=== PATIENT | male | born 1935 | race Caucasian/White ===

== ENCOUNTER 2016-10-21 10:27 | Emergency (ER) | payer MEDICAID, OTHER ==
[2016-10-21 10:57] VITALS: BMI 21.6
[2016-10-21 11:26] VITALS: BP 134/68; PULSE 84; RESP 20; TEMP 97.8; O2SAT 96
--- NOTE | 2016-10-21 11:38 | C.PDOC ---
History Of Present Illness 81 year old patient, with a past medical history of hypertension, presents to the ED complaining of bilateral eye redness and itching for the past 3 days. Patient's daughter is at bedside providing more history. She notes she thought it was allergies so she gave him Zyrtec with some relief. Patient also complains of a headache. He has a small, painless bump to his left forehead since he was a child, and now says "I think I have cancer in my head and I'm dying." Patient has a surgical history of cataract removal 3 months ago. As per daughter, patient states Patient denies trauma, fever, chills, vision change, shortness of breath, nausea, vomiting, back pain, numbness, weakness, or dizziness. Time Seen by Provider: 10/21/16 11:18 Chief Complaint (Nursing): Headache History Per: Patient, Family (daughter) History/Exam Limitations: no limitations Onset/Duration Of Symptoms: Days (3) Current Symptoms Are (Timing): Still Present Severity: Mild Pain Scale Rating Of: 3 Quality: "Pain" Preceeding Symptoms: None Recent travel outside of the [place]: No Additional History Per: Family Past Medical History Reviewed: Historical Data, Nursing Documentation, Vital Signs Vital Signs: Last Vital Signs Temp 97.8 F 10/21/16 10:45 Pulse 84 10/21/16 10:45 Resp 20 10/21/16 10:45 BP 134/68 10/21/16 10:45 Pulse Ox 96 10/21/16 13:47 - Medical History PMH: HTN Family History: States: No Known Family Hx - Social History Hx Tobacco Use: No Hx Alcohol Use: No Hx Substance Use: No - Immunization History Hx Tetanus Toxoid Vaccination: No Hx Influenza Vaccination: No Hx Pneumococcal Vaccination: No Review Of Systems Except As Marked, All Systems Reviewed And Found Negative. Constitutional: Negative for: Fever, Chills Eyes: Positive for: Redness (bilateral), Other (bilateral itchiness). Negative for: Vision Change Respiratory: Negative for: Shortness of Breath Gastrointestinal: Negative for: Nausea, Vomiting Musculoskeletal: Negative for: Back Pain Skin: Positive for: Other (bump to left forehead) Neurological: Positive for: Headache. Negative for: Weakness, Numbness, Dizziness Physical Exam - Physical Exam Appears: Non-toxic, No Acute Distress Skin: Warm, Dry Head: Atraumatic, Normacephalic, Other (freely moveable 1 cm soft tissue mass to the left forehead without evidence of cellulitis) Eye(s): bilateral: Normal Inspection, PERRL, EOMI, Other (mild conjunctival injection bilaterally) Ear(s): Bilateral: Normal Nose: Normal Oral Mucosa: Moist Throat: Normal Neck: Normal ROM, Supple Chest: Symmetrical Cardiovascular: Rhythm Regular, No Friction Rub, No Murmur Respiratory: Normal Breath Sounds, No Rales, No Rhonchi, No Wheezing Gastrointestinal/Abdominal: Soft, No Tenderness Back: Normal Inspection, No CVA Tenderness Extremity: Normal ROM, No Tenderness, No Swelling Neurological/Psych: Oriented x3, Normal Speech, Normal Cognition, Normal Motor, Normal Sensation Gait: Steady ED Course And Treatment O2 Sat by Pulse Oximetry: 96 (room air) Pulse Ox Interpretation: Normal - CT Scan/US Head CT Other Rad Studies (CT/US): Read By Radiologist (Emelina Ernandez MD), Radiology Report Reviewed CT/US Interpretation: PROCEDURE: CT HEAD WITHOUT CONTRAST. HISTORY: headache. COMPARISON: None available. TECHNIQUE: Axial computed tomography images were obtained through the head/brain without intravenous contrast. Radiation dose: Total exam DLP = 1059.52 MGy-cm. This CT exam was performed using one or more of the following dose reduction techniques: Automated exposure control, adjustment of the mA and/or kV according to patient size, and/ or use of iterative reconstruction technique. FINDINGS: HEMORRHAGE: No intracranial hemorrhage. BRAIN: Diffuse atrophy with prominence of the ventricles and sulci noted. No mass effect or edema. 5 mm coarse calcification, right basal ganglia. Scattered periventricular and subcortical white matter hypodensities, which are nonspecific, but often seen with chronic microvascular ischemic disease. Please note that MRI with diffusion imaging is more sensitive in the detection of acute ischemic event. VENTRICLES: No hydrocephalus. CALVARIUM: Unremarkable. PARANASAL SINUSES: Unremarkable as visualized. No significant inflammatory changes. MASTOID AIR CELLS: Unremarkable as visualized. No inflammatory changes. OTHER FINDINGS: None. IMPRESSION: Generalized atrophy. Nonspecific white matter changes. 5 mm coarse right basal ganglia calcification, nonspecific. Medical Decision Making Medical Decision Making: Plan: * Head CT without contrast * Reglan * Tylenol Results were discussed with the patient and family. Patient was instructed that the lump was most likely soft tissue or lipoma and to Follow up with the medical doctor within 1-2 days, Return if worsened Disposition - Disposition Referrals: Lucas Weinberg MD [Staff Provider] - Disposition: HOME/ ROUTINE Disposition Time: 12:33 Condition: FAIR Additional Instructions: Follow up with the medical and Eye doctor within 1-2 days without fail. Return if worsened. Prescriptions: Metoclopramide [Reglan] 1 tab PO TID PRN #25 tab PRN Reason: Nausea/Vomiting Tobramycin 0.3% [Tobramycin 5 Ml] 1 drop OU TID #1 bottle Instructions: Acute Headache (DC), Conjunctivitis (ED) Print Language: CHINESE - Clinical Impression Clinical Impression: Headache, Conjunctivitis - PA / PRINCIPAL ANDROID DEVELOPER / Resident Statement MD/DO has reviewed & agrees with the documentation as recorded. - Scribe Statement The provider has reviewed the documentation as recorded by the Scribe Nivia Pickens All medical record entries made by the Scribe were at my direction and personally dictated by me. I have reviewed the chart and agree that the record accurately reflects my personal performance of the history, physical exam, medical decision making, and the department course for this patient. I have also personally directed, reviewed, and agree with the discharge instructions and disposition.
--- NOTE | 2016-10-21 12:33 | CT ---
PROCEDURE: CT HEAD WITHOUT CONTRAST. HISTORY: headache COMPARISON: None available. TECHNIQUE: Axial computed tomography images were obtained through the head/brain without intravenous contrast. Radiation dose: Total exam DLP = 1059.52 MGy-cm. This CT exam was performed using one or more of the following dose reduction techniques: Automated exposure control, adjustment of the mA and/or kV according to patient size, and/or use of iterative reconstruction technique. FINDINGS: HEMORRHAGE: No intracranial hemorrhage. BRAIN: Diffuse atrophy with prominence of the ventricles and sulci noted. No mass effect or edema. 5 mm coarse calcification, right basal ganglia. Scattered periventricular and subcortical white matter hypodensities, which are nonspecific, but often seen with chronic microvascular ischemic disease. Please note that MRI with diffusion imaging is more sensitive in the detection of acute ischemic event. VENTRICLES: No hydrocephalus. CALVARIUM: Unremarkable. PARANASAL SINUSES: Unremarkable as visualized. No significant inflammatory changes. MASTOID AIR CELLS: Unremarkable as visualized. No inflammatory changes. OTHER FINDINGS: None. IMPRESSION: Generalized atrophy. Nonspecific white matter changes. 5 mm coarse right basal ganglia calcification, nonspecific.
== END 2016-10-21 12:45 | disposition home or self-care (01) ==
LOC: C.ER 10:27
DX: H10.9 Unspecified conjunctivitis (principal); R51 Headache

== ENCOUNTER 2017-05-01 10:21 | Emergency (ER) | payer MEDICARE, OTHER ==
[2017-05-01 10:21] VITALS: BMI 21.6
--- NOTE | 2017-05-01 12:03 | C.PDOC ---
History Of Present Illness 81 year old male, with past medical history of hypertension, is brought to Emergency Department by EMS for evaluation of left leg numbness and tingling sensation since 9:00 this morning. Patient reports left calf discomfort described as cramping. Patient states that he walked to the pharmacy to get his blood pressure checked, told the pharmacy staff about his symptoms, who called for ambulance. Denies any pain at this time. Otherwise, denies chest pain, shortness of breath, dizziness, headache, vision change, fever, or any other complaints at this time. Time Seen by Provider: 05/01/17 11:46 Chief Complaint (Nursing): Weakness/Neurological Deficit History Per: Patient History/Exam Limitations: no limitations Onset/Duration Of Symptoms: Days Current Symptoms Are (Timing): Still Present Recent travel outside of the [place]: No Additional History Per: Patient Past Medical History Reviewed: Historical Data, Nursing Documentation, Vital Signs Vital Signs: Last Vital Signs Temp 98.5 F 05/01/17 12:34 Pulse 85 05/01/17 14:07 Resp 18 05/01/17 14:07 BP 131/75 05/01/17 14:07 Pulse Ox 95 05/01/17 14:08 - Medical History PMH: HTN Surgical History: No Surg Hx Family History: States: Unknown Family Hx - Social History Hx Tobacco Use: No (past smoker) Hx Alcohol Use: Yes (daily) Hx Substance Use: No - Immunization History Hx Tetanus Toxoid Vaccination: No Hx Influenza Vaccination: No Hx Pneumococcal Vaccination: No Review Of Systems Except As Marked, All Systems Reviewed And Found Negative. Constitutional: Negative for: Fever, Chills Cardiovascular: Negative for: Chest Pain, Palpitations Respiratory: Negative for: Cough, Shortness of Breath Musculoskeletal: Negative for: Arm Pain, Leg Pain Skin: Negative for: Rash, Bruising Neurological: Positive for: Numbness ( leg). Negative for: Headache, Dizziness Physical Exam - Physical Exam Appears: Non-toxic, No Acute Distress Skin: Normal Color, Warm, Dry Head: Atraumatic, Normacephalic Eye(s): bilateral: Normal Inspection, PERRL, EOMI Oral Mucosa: Moist Neck: Normal ROM, Supple Chest: Symmetrical Cardiovascular: Rhythm Regular, No Murmur Respiratory: Normal Breath Sounds, No Rales, No Rhonchi, No Wheezing Gastrointestinal/Abdominal: Bowel Sounds, Soft, No Tenderness, No Guarding Extremity: Normal ROM, No Tenderness (no tenderness to left calf), No Pedal Edema, No Calf Tenderness, Capillary Refill (less than 2 seconds), No Deformity , No Swelling Pulses: Left Radial: Normal, Left Dorsalis Pedis: Normal Neurological/Psych: Oriented x3, Normal Speech, Normal Cranial Nerves, Normal Motor, Normal Sensation, No Other (no focal deficits) Gait: Steady ED Course And Treatment - Laboratory Results Result Diagrams: 05/01/17 12:08 05/01/17 12:08 ECG: Interpreted By Me, Viewed By Me ECG Rhythm: Sinus Rhythm ECG Interpretation: No Acute Changes Rate From EC (bpm) O2 Sat by Pulse Oximetry: 95 (RA) Pulse Ox Interpretation: Normal Medical Decision Making Medical Decision Making: Plan: * Blood work * Left lower extremity doppler * Reassess All labs reviewed and unremarkable. Doppler negative for DVT or other abnormality. Patient remained well in no acute distress. Daughter is at bedside and feels comfortable taking patient home. Advise follow up with PCP or to return to hospital for any worsening symptoms. Disposition Counseled Patient/Family Regarding: Studies Performed, Diagnosis, Need For Followup - Disposition [facility] [Outside] Disposition: HOME/ ROUTINE Disposition Time: 14:06 Condition: GOOD Additional Instructions: Vaya a mcbride mdico o la clnica en 2-5 black sin falta, para mas evaluacin. Volver a la sakshi de emergencia en cualquier momento si los sntomas persisten o empeoran. Instructions: Leg Pain (ED) Forms: [employer] (Sri Lankan) Print Language: MOZAMBICAN - POA Present On Arrival: None - Clinical Impression Clinical Impression: Pain of left calf, Muscle ache - PA / PITCH FLAKER / Resident Statement MD/DO has reviewed & agrees with the documentation as recorded. - Scribe Statement The provider has reviewed the documentation as recorded by the Juliannibjackson Pickens All medical record entries made by the Scribe were at my direction and personally dictated by me. I have reviewed the chart and agree that the record accurately reflects my personal performance of the history, physical exam, medical decision making, and the department course for this patient. I have also personally directed, reviewed, and agree with the discharge instructions and disposition.
[2017-05-01 12:16] LABS: BASO % 0.9 % (0.0-2.0); EOS # 0.1 K/uL (0.0-0.7); EOS % 2.3 % (0.0-4.0); HEMATOCRIT 41.3 % (35.0-51.0); LYMPH # 0.7 K/uL (1.0-4.3); LYMPH % 27.6 % (20.0-40.0); MEAN CELL VOLUME 87.5 fL (80.0-94.0); MEAN CORPUSCULAR HGB CONC 33.1 g/dL (33.0-37.0); MEAN PLATELET VOLUME 9.6 fL (7.2-11.7); MONO # 0.4 K/uL (0.0-0.8); MONO % 14.4 % (0.0-10.0); NRBC % 0.2 % (0.0-2.0); RED CELL DISTRIBUTION WIDTH 15.7 % (11.5-14.5); WHITE BLOOD COUNT 2.5 K/uL (4.8-10.8)
[2017-05-01 12:28] LABS: ALB/GLOB RATIO 1.1 (1.0-2.1); ALKALINE PHOSPHATASE 55 U/L (38-126); ALT/SGPT 41 U/L (21-72); AST/SGOT 21 U/L (17-59); BILIRUBIN,TOTAL 0.9 mg/dL (0.2-1.3); BLOOD UREA NITROGEN 23 mg/dL (9-20); CALCIUM 8.7 mg/dl (8.6-10.4); CARBON DIOXIDE 28 mmol/L (22-30); CHLORIDE 104 mmol/L (98-107); GFR AFRICAN-AMERICAN > 60; GLUCOSE,RANDOM 93 mg/dL (75-110); POTASSIUM 3.7 mmol/L (3.6-5.2); SODIUM 139 mmol/L (132-148); TOTAL PROTEIN 7.6 g/dL (6.3-8.3)
[2017-05-01 12:36] VITALS: TEMP 98.5
[2017-05-01 14:08] VITALS: BP 131/75; PULSE 85; RESP 18; O2SAT 95
--- NOTE | 2017-05-04 10:42 | VASCLAB ---
PROCEDURE: Left Lower Extremity Venous Duplex Exam. HISTORY: left calf pain PRIORS: None. TECHNIQUE: Left common femoral, femoral, popliteal and posterior tibial, peroneal and great saphenous veins were evaluated. Flow was assessed with color Doppler, compressibility, assessment of phasic flow and augmentation response. Report prepared by DINA Hicks, RVT FINDINGS: LEFT: 1. Common Femoral Vein: 1.1. Compressibility - Fully compressible: Thrombus - None : Flow - Phasic: Augmentation -Normal: Reflux - None. 2. Femoral Vein: 2.1. Compressibility - Fully compressible: Thrombus - None: Flow - Phasic: Augmentation -Normal: Reflux - None. 3. Popliteal Vein: 3.1. Compressibility - Fully compressible: Thrombus - None: Flow - Phasic: Augmentation -Normal: Reflux - None. 4. Posterior Tibial Vein: 4.1. Compressibility - Fully compressible: Thrombus - None: Flow - Phasic: Augmentation -Normal: Reflux - None. 5. Peroneal Vein: 5.1. Compressibility - Fully compressible: Thrombus - None: Flow - Phasic: Augmentation -Normal: Reflux - None. 6. Great Saphenous Vein: 6.1. Compressibility - Fully compressible: Thrombus - None: Flow - Phasic: Augmentation - Normal: Reflux - None. OTHER FINDINGS: IMPRESSION: No evidence of deep or superficial vein thrombosis of the left lower extremity with excellent venous flow. Normal valve function noted of the left side. Normal venous flow noted in the right common femoral vein.
--- NOTE | 2017-05-05 11:30 | CARD ---
APPROVED REPORT EKG Measurement Heart [id number] <Conclusion> Normal sinus rhythm Left axis deviation Abnormal ECG
== END 2017-05-01 14:13 | disposition home or self-care (01) ==
LOC: C.ER 10:21
DX: M79.662 Pain in left lower leg (principal); I10 Essential (primary) hypertension

== ENCOUNTER 2017-05-13 10:43 | Emergency (ER) | payer MEDICARE, OTHER ==
[2017-05-13 10:43] VITALS: BMI 21.6
[2017-05-13 10:54] VITALS: O2SAT 99
--- NOTE | 2017-05-13 12:49 | C.PDOC ---
History Of Present Illness 81 year old male with PMHx of HTN presents to the ED for evaluation of fall that occurred 4 days ago. Patient reports he tripped and fell facing forward and his currently c/o right upper chest and right upper back pain that is tender to palpation and worsens with deep breathing. Patient denies fever, nausea, headache, LOC, blurry vision, back pain, abdominal pain, diarrhea. - HPI Time Seen by Provider: 05/13/17 12:22 Chief Complaint (Nursing): Rib Injury History Per: Patient History/Exam Limitations: no limitations Onset/Duration Of Symptoms: Days Injury Occurred (Timing): Days Ago: (4 days) Location Of Injury: Right: Back, Chest, Anterior: Chest, Posterior: Back Severity: Mild Recent travel outside of the [place]: No Additional History Per: Patient - Fall Fall:Prior To Injury: Tripped Past Medical History Reviewed: Historical Data, Nursing Documentation, Vital Signs Vital Signs: Last Vital Signs Temp 98.1 F 05/13/17 10:50 Pulse 70 05/13/17 10:50 Resp 18 05/13/17 10:50 BP 161/82 H 05/13/17 10:50 Pulse Ox 99 05/13/17 16:03 - Medical History PMH: HTN Surgical History: No Surg Hx Family History: States: Unknown Family Hx - Social History Hx Tobacco Use: No (past smoker) Hx Alcohol Use: Yes (daily) Hx Substance Use: No - Immunization History Hx Tetanus Toxoid Vaccination: No Hx Influenza Vaccination: No Hx Pneumococcal Vaccination: No Review Of Systems Constitutional: Negative for: Fever, Chills Cardiovascular: Positive for: Chest Pain (Right upper ). Negative for: Palpitations Respiratory: Negative for: Cough, Shortness of Breath Gastrointestinal: Negative for: Nausea, Vomiting, Abdominal Pain Genitourinary: Negative for: Dysuria, Hematuria Musculoskeletal: Positive for: Back Pain (Right upper) Skin: Negative for: Rash Neurological: Negative for: Weakness, Numbness Physical Exam - Physical Exam Appears: Non-toxic, No Acute Distress Skin: Normal Color, Warm, Dry Head: Atraumatic, Normacephalic Nose: No Discharge, No Deformity Oral Mucosa: Moist Neck: Normal ROM, Supple Chest: Symmetrical, Tenderness (Right upper) Cardiovascular: Rhythm Regular, No Murmur Respiratory: Decreased Breath Sounds (B/L with poor effort), No Rales, No Rhonchi, No Wheezing Gastrointestinal/Abdominal: Soft, No Tenderness Back: Other (Right upper backshoe person to palpation) Extremity: Normal ROM, No Pedal Edema, No Calf Tenderness, No Deformity, No Swelling Neurological/Psych: Oriented x3, Normal Speech, Normal Cognition Gait: Steady ED Course And Treatment O2 Sat by Pulse Oximetry: 99 (On RA) Pulse Ox Interpretation: Normal - CT Scan/US CT chest Other Rad Studies (CT/US): Interpreted By Me, Read By Radiologist, Radiology Report Reviewed CT/US Interpretation: FINDINGS: LUNGS: No pulmonary infiltrate. Probable subsegmental atelectasis in both lower lobes. Mild subpleural emphysema both upper lobes. There is a 10 mm right lower lobe nodule (series 3, image 78 close) . As per Fleischner society criteria, consider follow-up CT 3 months or evaluation with PET-CT. No other pulmonary mass is identified. MEDIASTINUM: Unremarkable thoracic aorta. No aneurysm. Normal sized heart. Main pulmonary artery unremarkable. No vascular congestion. No lymphadenopathy. Heterogeneous thyroid gland, possibly due to nodules. Recommend correlation with thyroid ultrasound on a nonemergent basis. PLEURA: No pleural fluid. No pneumothorax. BONES: No fracture. No destructive lesion. UPPER ABDOMEN: Left upper pole renal cyst, 1.6 cm, measuring 3 Hounsfield units. OTHER FINDINGS: None. IMPRESSION: No evidence of rib fracture or pulmonary contusion/ pneumothorax or hemothorax. Incidental 10 mm nodule in right lower lobe for which followup is advised. This should be performed with either three-month follow-up CT or PET-CT examination. Heterogeneous thyroid. Recommend evaluation with thyroid ultrasound. Incidental left upper pole renal cortical cyst. . Additional minor findings as above. Medical Decision Making Medical Decision Making: Impression : 81 y/o male with chedt and back pain SP tripping and falling Plan: * CT chest * CXR * Motrin 600 mg PO Patient states he still feels pain after the medications, CT pending. Disposition Counseled Patient/Family Regarding: Studies Performed, Diagnosis, Need For Followup, Rx Given - Disposition Referrals: Lei Salazar MD [Staff Provider] - Disposition: HOME/ ROUTINE Disposition Time: 16:04 Condition: STABLE Prescriptions: Naproxen [Naprosyn] 1 tab PO BID PRN #12 tab PRN Reason: Pain Instructions: Contusion in Adults (ED) Forms: [employer] (Azeri) - POA Present On Arrival: None - Clinical Impression Clinical Impression: Contusion - Scribe Statement The provider has reviewed the documentation as recorded by the Scribe Arik Sauer All medical record entries made by the Scribe were at my direction and personally dictated by me. I have reviewed the chart and agree that the record accurately reflects my personal performance of the history, physical exam, medical decision making, and the department course for this patient. I have also personally directed, reviewed, and agree with the discharge instructions and disposition.
--- NOTE | 2017-05-13 15:19 | CT ---
PROCEDURE: CT Chest without contrast HISTORY: fall, right side pain COMPARISON: None. TECHNIQUE: Contiguous axial images were obtained through the chest without intravenous contrast enhancement. Sagittal and coronal reconstructions were performed. Radiation dose (DLP): 174.83 mGy-cm. This CT exam was performed using one or more of the following dose reduction techniques: Automated exposure control, adjustment of the mA and/or kV according to patient size, and/or use of iterative reconstruction technique. FINDINGS: LUNGS: No pulmonary infiltrate. Probable subsegmental atelectasis in both lower lobes. Mild subpleural emphysema both upper lobes. There is a 10 mm right lower lobe nodule (series 3, image 78 close). As per Fleischner society criteria, consider follow-up CT 3 months or evaluation with PET-CT. No other pulmonary mass is identified. MEDIASTINUM: Unremarkable thoracic aorta. No aneurysm. Normal sized heart. Main pulmonary artery unremarkable. No vascular congestion. No lymphadenopathy. Heterogeneous thyroid gland, possibly due to nodules. Recommend correlation with thyroid ultrasound on a nonemergent basis. PLEURA: No pleural fluid. No pneumothorax. BONES: No fracture. No destructive lesion. UPPER ABDOMEN: Left upper pole renal cyst, 1.6 cm, measuring 3 Hounsfield units. OTHER FINDINGS: None. IMPRESSION: No evidence of rib fracture or pulmonary contusion/ pneumothorax or hemothorax. Incidental 10 mm nodule in right lower lobe for which followup is advised. This should be performed with either three-month follow-up CT or PET-CT examination. Heterogeneous thyroid. Recommend evaluation with thyroid ultrasound. Incidental left upper pole renal cortical cyst. . Additional minor findings as above.
[2017-05-13 16:06] VITALS: BP 150/74; PULSE 76; RESP 16; TEMP 98.3
--- NOTE | 2017-05-13 16:47 | RAD ---
PROCEDURE: Radiographs of the Chest and Right Ribs. HISTORY: fall COMPARISON: None available. TECHNIQUE: Frontal radiograph of the chest and multiple oblique radiographs of the right ribs were obtained. FINDINGS: RIGHT RIBS: No fracture or focal lesion visualized. LUNGS: Clear. PLEURA: No pneumothorax or pleural fluid. CARDIOVASCULAR: Normal sized heart. No pulmonary vascular congestion. OTHER FINDINGS: None. IMPRESSION: Unremarkable radiographs of the chest and right ribs. No right rib fracture.
== END 2017-05-13 16:21 | disposition home or self-care (01) ==
LOC: C.ER 10:43
DX: S20.211A Contusion of right front wall of thorax, initial encounter (principal); S20.221A Contusion of right back wall of thorax, initial encounter; W01.0XXA Fall on same level from slipping, tripping and stumbling without subsequent striking against object, initial encounter

== ENCOUNTER 2017-08-23 23:53 | Emergency (ER) | payer MEDICARE, OTHER ==
[2017-08-23 23:54] VITALS: BMI 21.6
--- NOTE | 2017-08-24 01:16 | C.PDOC ---
History Of Present Illness 82 y/o M c PMHx HTN p/w facial congestion x 5 days. States he feels congested in bilateral ears, face, and nose. Denies any mucus coming out. Denies cough, stiff neck, fever, vomiting, dyspnea. Time Seen by Provider: 08/24/17 01:04 Chief Complaint (Nursing): ENT Problem Past Medical History Vital Signs: Last Vital Signs Temp 97.7 F 08/24/17 00:07 Pulse 73 08/24/17 00:07 Resp 16 08/24/17 00:07 BP 169/85 H 08/24/17 00:07 Pulse Ox 97 08/24/17 00:07 - Medical History PMH: HTN Family History: States: Unknown Family Hx - Social History Hx Tobacco Use: No (past smoker) Hx Alcohol Use: Yes (daily) Hx Substance Use: No - Immunization History Hx Tetanus Toxoid Vaccination: No Hx Influenza Vaccination: No Hx Pneumococcal Vaccination: No Review Of Systems Except As Marked, All Systems Reviewed And Found Negative. Constitutional: Negative for: Fever Respiratory: Negative for: Shortness of Breath Physical Exam - Physical Exam Additional Physical Exam Comments: Gen: NAD Head: NC/AT/no sinus tenderness Eyes: No scleral icterus ENT: TMs normal. Pharynx no erythema. No septal hematoma. No mastoid tenderness Neck: No rigidity CV: Regular rate Resp: No accessory muscle use Abd: Soft Extremities: No swelling Skin: No rash Neuro: Alert ED Course And Treatment O2 Sat by Pulse Oximetry: 97 Medical Decision Making Medical Decision Making: Will place on Augmentin, f/u Dr. Salazar, instructed to return to ED for worsening pain, fever, stiff neck, headache, or any other problem. Disposition - Disposition Disposition: HOME/ ROUTINE Disposition Time: 01:16 Condition: STABLE Prescriptions: Amoxicillin/Clavulanate [Augmentin 875 MG-125 MG] 1 tab PO BID #20 tab Guaifenesin [Mucus Relief] 600 mg PO Q12H #18 tab.er.12h Instructions: Cough, Runny Nose, and the Common Cold - Clinical Impression Clinical Impression: Head congestion
[2017-08-24 05:14] VITALS: BP 145/85; PULSE 70; RESP 18; TEMP 99.4; O2SAT 96
== END 2017-08-24 05:29 | disposition home or self-care (01) ==
LOC: C.ER 23:53
DX: R09.81 Nasal congestion (principal)